=== PATIENT | male | born 1960 | race Caucasian/White ===

== ENCOUNTER 2022-05-11 08:38 | Outpatient (CLI) | payer BC | END 2022-05-11 08:39 | disposition home or self-care (01) | LOC: RAD 08:38 | PROVIDERS: ATTEND Surgery | DX: K21.9 Gastro-esophageal reflux disease without esophagitis (principal); K22.89 Other specified disease of esophagus; Z98.84 Bariatric surgery status | CPT/HCPCS: 74220 ==

== ENCOUNTER 2022-06-08 09:26 | Outpatient (CLI) | payer BC | END 2022-06-08 09:27 | disposition home or self-care (01) | LOC: DTY/OP 09:26 | PROVIDERS: ATTEND Surgery | DX: E66.01 Morbid (severe) obesity due to excess calories (principal); Z68.42 Body mass index [BMI] 45.0-49.9, adult | CPT/HCPCS: 97802 ==

== ENCOUNTER 2022-07-13 08:30 | Inpatient (IN) | payer BC ==
[2022-07-21] MEDS ORDERED: fentaNYL PF 100 MCG/2 ML SYRINGE ONE (06:34)
[2022-07-21] MEDS ORDERED: HYDROmorphone 0.5 MG/0.5 ML SYRINGE ONE (06:34)
[2022-07-21] MEDS ORDERED: SUGAMMADEX SODIUM 200 MG/2 ML VIAL ONE (06:34)
[2022-07-21] MEDS ORDERED: CEFAZOLIN 2 GM VIAL ONE (06:36)
[2022-07-21] MEDS ORDERED: Sodium Chloride 0.9% 100 ML ONE (06:37)
[2022-07-21] MEDS ORDERED: Heparin 5,000 UNITS/ML VIAL ONE (06:37)
[2022-07-21] MEDS ORDERED: Dexmedetomidine 200 MCG/2 ML VIAL ONE (06:40)
[2022-07-21 07:36] LABS: SARS-CoV-2 NAA Rapid Test Not Detected (NotDetected)
[2022-07-21] MEDS ORDERED: Bupivacaine/Epinephrine 0.25% 30 ML VIAL ONE (07:50)
[2022-07-21] MEDS ORDERED: Dexamethasone 20 MG/5 ML VIAL ONE (07:51)
[2022-07-21] MEDS ORDERED: Ketorolac Tromethamine 30 MG/ML VIAL ONE (07:51)
[2022-07-21] MEDS ORDERED: Lidocaine 1% PF 5 ML VIAL ONE (07:51)
[2022-07-21] MEDS ORDERED: Rocuronium Bromide 10 MG/ML (10ML VIAL) ONE (07:51)
[2022-07-21] MEDS ORDERED: PROPOFOL 200 MG/20 ML VIAL ONE (07:51)
[2022-07-21] MEDS ORDERED: Ondansetron PF 4 MG/2 ML Vial ONE (07:51)
[2022-07-21] MEDS ORDERED: ePHEDrine 50 MG/ML VIAL ONE (07:51)
[2022-07-21] MEDS ORDERED: Morphine 4 MG/ML VIAL SLOW IVP PRN (09:33)
[2022-07-21] MEDS ORDERED: hydrALAZINE 20 MG/ML VIAL SLOW IVP PRN (09:33)
[2022-07-21] MEDS ORDERED: Ondansetron PF 4 MG/2 ML Vial IVP PRN (09:33)
[2022-07-21] MEDS ORDERED: Morphine 2 MG/ML VIAL SLOW IVP PRN (09:33)
[2022-07-21] MEDS ORDERED: diphenhydrAMINE 50 MG/ML VIAL IVP PRN (09:33)
[2022-07-21] MEDS ORDERED: Promethazine HCl 25 MG/ML VIAL IM PRN (09:33)
[2022-07-21] MEDS ORDERED: Ipratropium/Albuterol 3 ML NEB NEB PRN (09:33)
[2022-07-21] MEDS ORDERED: Dextrose 50% Abboject 50 ML SYRINGE SLOW IVP PRN (09:33)
[2022-07-21] MEDS ORDERED: Dextrose 5% in Water 1,000 ML IV PRN (09:33)
[2022-07-21] MEDS ORDERED: Fentanyl 100 MCG/2 ML VIAL ONE ×2 (09:47→10:06)
[2022-07-21] MEDS ORDERED: Non-Formulary Medication 1 EACH PO PRN (09:54)
[2022-07-21] MEDS ORDERED: Promethazine HCl 25 MG/ML VIAL IM/IV PRN (10:00)
[2022-07-21] MEDS ORDERED: HYDROmorphone 2 MG/ML VIAL SLOW IVP PRN (10:00)
[2022-07-21] MEDS ORDERED: Ondansetron HCl/PF 4 MG/2 ML Vial IVP PRN (10:00)
[2022-07-21] MEDS: Ketorolac Tromethamine 30 MG/ML VIAL IVP SCH ×3 (12:32→23:22)
[2022-07-21] MEDS: 1/2 NS w/KCL 20 mEq 1,000 ML IV SCH ×3 (12:35→23:32)
[2022-07-21 12:42] VITALS: BMI 43.9
[2022-07-21] MEDS: CEFAZOLIN 2 GM in Sodium Chloride 0.9% 100 ML IVPB SCH ×2 (13:49→19:42)
[2022-07-21] MEDS: Hydrocodone-Acetamin 15 ML UDCUP PO PRN ×3 (15:21→23:27)
[2022-07-22 04:55] VITALS: BP 124/77; TEMP 97.7
[2022-07-22] MEDS: Ketorolac Tromethamine 30 MG/ML VIAL IVP SCH (05:37)
[2022-07-22 07:02] LABS: #Eosinphils 0.1 thou/uL (0.0-0.7); #Lymphocytes 0.9 thou/uL (1.20-3.40); #Monocytes 0.9 thou/uL (0.11-0.59); #Neutrophils 11.5 thou/uL (1.40-6.50); %Basophils 0.1 % (0.0-1.0); %Eosinophils 0.5 % (0.0-10.0); %Lymphocytes 6.9 % (21.0-51.0); %Monocytes 6.7 % (0.0-10.0); %Neutrophils 85.8 % (42.0-75.0); Hemoglobin 11.1 g/dL (14.0-18.0); Mean Corpuscular HGB CONC 33.2 g/dL (32.0-36.0); Mean Corpuscular Volume 90.5 fl (78.0-98.0); Mean Platelet Volume 7.5 fL (7.4-10.4); Platelet Count 315 10x3/uL (130-400); RBC Distribution Width 14.1 % (11.5-14.5); White Blood Cell (WBC) Count 13.4 10x3/uL (4.8-10.8)
[2022-07-22 07:22] LABS: Anion Gap 14 mmol/L (10-20); BUN (Urea Nitrogen) 44 mg/dL (8.4-25.7); Calc. Creatinine Clearance 145 mL/min (70-130); Calcium 8.2 mg/dL (7.8-10.44); Carbon Dioxide 20 mmol/L (22-29); Chloride 105 mmol/L (98-107); Estimated GFR 70; Glucose 153 mg/dL (70-105); Potassium 5.2 mmol/L (3.5-5.1); Sodium 134 mmol/L (136-145)
[2022-07-22] MEDS: Hydrocodone-Acetamin 15 ML UDCUP PO PRN (08:26)
[2022-07-22] MEDS: 1/2 NS w/KCL 20 mEq 1,000 ML IV SCH (08:51)
[2022-07-22] MEDS ORDERED: Pantoprazole 40 MG VIAL IVP SCH (09:00)
== END 2022-07-22 10:00 | disposition home or self-care (01) | DRG 327 ==
LOC: SURG A 07-21 06:02 → SURG B 07-21 12:51
PROVIDERS: ADMIT Surgery; ATTEND Surgery
PROC: 0DP64CZ Removal of Extraluminal Device from Stomach, Percutaneous Endoscopic Approach (ICD-10-PCS; principal; 2022-07-21)
PROC: 0DB64Z3 Excision of Stomach, Percutaneous Endoscopic Approach, Vertical (ICD-10-PCS; 2022-07-21)
PROC: 8E0W4CZ Robotic Assisted Procedure of Trunk Region, Percutaneous Endoscopic Approach (ICD-10-PCS; 2022-07-21)
DX: K95.09 Other complications of gastric band procedure (principal); Z68.41 Body mass index [BMI] 40.0-44.9, adult; K21.9 Gastro-esophageal reflux disease without esophagitis; E66.01 Morbid (severe) obesity due to excess calories; Z20.822 Contact with and (suspected) exposure to COVID-19; Y83.1 Surgical operation with implant of artificial internal device as the cause of abnormal reaction of the patient, or of later complication, without mention of misadventure at the time of the procedure; Z79.899 Other long term (current) drug therapy; Z79.82 Long term (current) use of aspirin; Z79.02 Long term (current) use of antithrombotics/antiplatelets; Z79.4 Long term (current) use of insulin; Z79.84 Long term (current) use of oral hypoglycemic drugs
CPT/HCPCS: 36415; 80048; 85025; 88307; C9113; J1100; J1170; J1644; J1650; J1885; J2405; J2704; J3010; J3480; J3490; U0002

== ENCOUNTER 2022-07-13 08:37 | Outpatient (CLI) | payer BC ==
[2022-07-13 09:32] LABS: #Basophils 0.1 10x3/uL (0.0-0.2); #Eosinphils 0.6 10x3/uL (0.0-0.5); #Monocytes 0.9 10x3/uL (0.0-1.1); #Neutrophils 9.2 10x3/uL (1.5-8.4); %Basophils 0.4 % (0.0-2.0); %Lymphocytes 6.8 % (18.0-47.0); %Monocytes 7.8 % (0.0-10.0); %Neutrophils 79.6 % (40.0-75.0); Hemoglobin 14.4 g/dL (13.5-17.5); Mean Corpuscular HGB CONC 32.8 g/dL (32.0-36.0); Mean Corpuscular Hemoglobin 28.3 pg (27.0-33.0); Mean Corpuscular Volume 86.4 fl (81.2-95.1); Mean Platelet Volume 10.1 fl (7.4-10.4); Platelet Count 313 10x3/uL (150-450); RBC Distribution Width 14.3 % (11.5-14.5); Red Blood Cell (RBC) Count 5.08 10x6/uL (4.32-5.72); White Blood Cell (WBC) Count 11.5 10x3/uL (3.5-10.5)
[2022-07-13 09:51] LABS: ALT (SGPT) 32 U/L (8-55); AST (SGOT) 35 U/L (5-34); Alkaline Phosphatase 90 U/L (40-110); Anion Gap 16 mmol/L (10-20); BUN (Urea Nitrogen) 43 mg/dL (8.4-25.7); Bilirubin, Total 0.7 mg/dL (0.2-1.2); Calc. Creatinine Clearance 0 mL/min (70-130); Calcium 9.6 mg/dL (7.8-10.44); Carbon Dioxide 22 mmol/L (22-29); Chloride 106 mmol/L (98-107); Estimated GFR 83; Globulin 2.8 g/dL (2.4-3.5); Glucose 139 mg/dL (70-105); Potassium 4.6 mmol/L (3.5-5.1); Protein, Total 6.8 g/dL (6.0-8.3); Sodium 139 mmol/L (136-145)
[2022-07-13 14:11] LABS: Hemoglobin A1c 7.3 % (4.0-6.0)
== END 2022-07-13 08:38 | disposition home or self-care (01) ==
LOC: LABBT 08:37
PROVIDERS: ATTEND Surgery
DX: Z01.818 Encounter for other preprocedural examination (principal); K21.9 Gastro-esophageal reflux disease without esophagitis; E66.01 Morbid (severe) obesity due to excess calories; I51.7 Cardiomegaly
CPT/HCPCS: 71046; 80053; 83036; 85025; 93005; 93010